=== PATIENT | male | born 1990 | race African-American/Black ===

== ENCOUNTER 2024-04-08 15:26 | Emergency (ER) | payer BC, SELFPAY ==
[2024-04-08 16:23] LABS: Absolute Basophils 0.1 K/uL (0-0.5); Absolute Eosinophils 0.3 K/uL (0-0.5); Absolute Monocytes 0.7 K/uL (0.1-1.3); Absolute Neutrophil 4.7 K/uL (1.8-8.0); Basophils % 0.7 % (0-1.3); Eosinophils % 3.3 % (0-4.4); Hematocrit 50.9 % (39.6-49.0); Hemoglobin 16.8 g/dL (13.6-17.9); MCH 28.3 pg (27.0-35.0); MCV 85.9 fL (80-100); MPV 6.4 fL (7.6-11.3); Monocytes % 9.4 % (3.3-12.3); Neutrophils % 60.6 % (41.7-73.7); Platelets 435 thou/uL (152-406); RBC Red Blood Cell Count 5.93 M/uL (4.33-5.43); Red Cell Distribution Width 13.6 % (12.1-15.2)
[2024-04-08 16:35] LABS: Anion Gap 8.4 mEq/L (5.0-15.0); Potassium 4.4 mEq/L (3.5-5.1)
[2024-04-08 17:05] LABS: White Blood Cell Scan OK (OK)
[2024-04-08 17:06] LABS: Blood Morphology Comment NOT SEEN (NOT SEEN); Platelet Estimate ADEQ
--- NOTE | 2024-04-08 17:22 | RAD REPORT ---
EXAMINATION: CT MAXILLOFACIAL WITH CONTRAST CLINICAL INDICATION: facial swelling, poss dental abscess? TECHNIQUE: Axial images were obtained through the facial bones and orbits with intravenous contrast. Sagittal and coronal reconstructions were created from the data. One or more of the following dose reduction techniques were used: Automated exposure control, adjustment of the mA and/or kV according to patient size, and/or iterative reconstruction. Unless otherwise specified, incidental findings do not require dedicated imaging follow-up. COMPARISON: No prior exam. FINDINGS: SOFT TISSUE: Mildly prominent lymph nodes seen along both jugulodigastric chains. BONES: No evidence of fracture, dislocation, or aggressive osseous lesions. No lesion of the visuali zed skull base or calvarium. ORBITS: The globes are intact. No intraorbital hemorrhage or mass. SINUSES: Small amount of mucous retention cyst or polyp inferior right maxillary antrum. The paranasa l sinuses and mastoids are otherwise clear. No pathologic areas of post-contrast enhancement identified. IMPRESSION: No abscess is visualized.
--- NOTE | 2024-04-08 17:32 | EDPHYS ---
Physician Documentation [facility] Name: Turner Solano Age: 34 yrs Sex: Male : 1990 Arrival Date: 04/08/2024 Time: 15:26 Bed 20 Private MD: ED Physician lE Yang HPI: 04/08 17:15 This 34 yrs old Black Male presents to ER via Ambulatory with complaints of Facial sb4 Swelling. 17:17 patient reports right sided facial swelling and pain for the past few days. he saw his sb4 PCP who told him it was likely his wisdom teeth and/or dental infection and put him on clindamycin. he did see a dentist 3 months ago, had imaging done, and was told his wisdom teeth need to be extracted. he denies any specific pain in the teeth, just swelling in his face. + subjective fever, no chills. no n/v/d. Historical: - Allergies: 15:44 PENICILLINS; iw - Home Meds: 15:44 None [Active]; iw - PMHx: 15:44 None; iw - PSHx: 15:44 None; iw - Immunization history:: Adult Immunizations not up to date. - Infectious Disease History:: Denies. - Social history:: Smoking status: Reported history of juuling and/or vaping. ROS: 17:17 Respiratory: Negative for shortness of breath, cough, wheezing, and pleuritic chest sb4 pain, 17:17 Constitutional: Positive for fever, 17:17 ENT: Positive for right sided facial swelling, 17:17 All other systems are negative, Exam: 17:17 Constitutional: This is a well developed, well nourished patient who is awake, alert, sb4 and in no acute distress. Eyes: Extra-ocular motions intact. Periorbital areas with no swelling, redness, or edema. ENT: Mucous membranes moist. Cardiovascular: Regular rate and rhythm with a normal S1 and S2. Respiratory: No increased work of breathing, no retractions or nasal flaring. Abdomen/GI: Soft, non-tender, no distension. Skin: Warm, dry with normal turgor. Normal color with no rashes, no lesions, and no evidence of cellulitis. 17:17 Head/face: Noted is swelling, that is mild, of the right cheek and right jaw, 17:17 ENT: Dental exam: normal, Vital Signs: 15:42 BP 139 / 82; Pulse 70; Resp 16; Temp 98.2; Pulse Ox 100% on R/A; Weight 72.57 kg; iw Height 5 ft. 8 in. ; Pain 5/10; 16:30 BP 128 / 79; Pulse 68; Resp 16; Pulse Ox 100% ; me1 17:30 BP 132 / 81; Pulse 68; Resp 16; Temp 98.4; Pulse Ox 100% ; me1 15:42 Body Mass Index 24.33 (72.57 kg, 172.72 cm) iw 15:42 Pain Scale: Adult iw MDM: 15:44 Medical Screening Exam initiated sb4 17:29 Data reviewed: vital signs, nurses notes, lab test result(s), radiologic studies, and sb4 as a result, I will discharge patient. Counseling: I had a detailed discussion with the patient and/or guardian regarding the historical points, exam findings, and any diagnostic results supporting the discharge/admit diagnosis, the presence of at least one elevated blood pressure reading (>120/80) during this emergency department visit, lab results, radiology results, to return to the emergency department if symptoms worsen or persist or if there are any questions or concerns that arise at home. 04/08 15:54 Order name: CBC with Diff; Complete Time: 17:07 sb4 04/08 15:54 Order name: BMP; Complete Time: 16:36 sb4 04/08 16:32 Order name: CBC Smear Scan; Complete Time: 17:07 EDMS 04/08 15:54 Order name: Facial Bones W/ Con \T\ MPR CT; Complete Time: 17:23 sb4 04/08 15:54 Order name: IV Start; Complete Time: 16:21 sb4 Administered Medications: No medications were administered Disposition: 19:17 Co-signature as Attending Physician, El Yang MD I reviewed the patient's care rt provided by the Advanced Practice Provider and agree with the diagnosis and treatment plan. Disposition Summary: 04/08/24 17:31 Discharge Ordered Notes: Location: Home sb4 Problem: new sb4 Symptoms: are unchanged sb4 Condition: Stable sb4 Diagnosis - Mucous retention cyst right maxillary sinus sb4 Followup: sb4 - With: Adan Bloom DDS - When: As needed - Reason: Recheck today's complaints, Re-evaluation by your physician Discharge Instructions: - Discharge Summary Sheet sb4 Forms: - Work release form sb4 - Patient Portal Instructions sb4 - Leadership Thank You Letter sb4 Prescriptions: - phenylephrine HCl 5 mg Oral tablet - take 1 tablet ORAL route every 4 to 6 hours as needed for nasal congestion; 20 sb4 tablet; Refills: 0, Product Selection Permitted - Prednisone 20 mg Oral Tablet - take 1 tablet ORAL route once daily for 5 days; 5 tablet; Refills: 0, Product sb4 Selection Permitted Signatures: Dispatcher [employer] EDMS Sofiya Hernandez, RN RN iw Kierra Reynolds PA-C PADemarco sb4 El Yang MD MD rt Corrections: (The following items were deleted from the chart) 15:54 15:54 CBC+H.LAB.BRZ ordered. EDMS EDMS 15:54 15:54 BASIC METABOLIC PANEL+C.LAB.BRZ ordered. EDMS EDMS 15:54 15:54 Facial Bones W/ Con \T\ MPR+CT.RAD.BRZ ordered. EDMS EDMS
--- NOTE | 2024-04-08 17:32 | ER ---
Nurse's Notes [facility] Name: Turner Solano Age: 34 yrs Sex: Male : 1990 Arrival Date: 04/08/2024 Time: 15:26 Bed 20 Private MD: Diagnosis: Mucous retention cyst right maxillary sinus Presentation: 04/08 15:42 Chief complaint: Patient states: right sided facial swelling and jaw pain since last iw week, has been on clindamycin since Tuesday, and now his tongue is black. Coronavirus screen: At this time, the client does not indicate any symptoms associated with coronavirus-19. Ebola Screen: No symptoms or risks identified at this time. Initial Sepsis Screen: Does the patient meet any 2 criteria? No. Patient's initial sepsis screen is negative. Does the patient have a suspected source of infection? No. Patient's initial sepsis screen is negative. Risk Assessment: Do you want to hurt yourself or someone else? Patient reports no desire to harm self or others. 15:42 Method Of Arrival: Ambulatory iw 15:42 Acuity: SANDEEP 4 iw 16:01 Acuity: SANDEEP 3 iw 17:57 Onset of symptoms is unknown. me1 Historical: - Allergies: 15:44 PENICILLINS; iw - Home Meds: 15:44 None [Active]; iw - PMHx: 15:44 None; iw - PSHx: 15:44 None; iw - Immunization history:: Adult Immunizations not up to date. - Infectious Disease History:: Denies. - Social history:: Smoking status: Reported history of juuling and/or vaping. Screenin:50 [facility] ED Fall Risk Assessment (Adult) History of falling in the last 3 months, iw including since admission No falls in past 3 months (0 pts) Confusion or Disorientation No (0 pts) Intoxicated or Sedated No (0 pts) Impaired Gait No (0 pts) Mobility Assist Device Used No (0 pt) Altered Elimination No (0 pt) Score/Fall Risk Level 0 - 2 = Low Risk Maintained a safe environment, Provided non-skid footwear, Hourly rounding (assess needs \T\ fall precautionary measures) done. Abuse screen: Denies threats or abuse. Nutritional screening: No deficits noted. Tuberculosis screening: No symptoms or risk factors identified. Assessment: 15:50 General: Appears in no apparent distress. Behavior is calm, cooperative, appropriate iw for age, Reports right sided facial swelling and jaw pain since last week, has been on clindamycin since Tuesday, and now his tongue is black. Pain: Complains of pain in right jaw Pain does not radiate. Pain currently is 4 out of 10 on a pain scale. Quality of pain is described as aching, Pain began gradually, Is continuous. Neuro: Level of Consciousness is awake, alert, obeys commands, Oriented to person, place, time, situation, Appropriate for age. Cardiovascular: Patient's skin is warm and dry. Respiratory: Airway is patent Trachea midline Respiratory effort is even, unlabored, Respiratory pattern is regular, symmetrical. GI: No signs and/or symptoms were reported involving the gastrointestinal system. : No signs and/or symptoms were reported regarding the genitourinary system. EENT: Reports right sided facial swelling and jaw pain since last week, has been on clindamycin since Tuesday, and now his tongue is black . Derm: Skin is healthy with good turgor, Skin is normal. Musculoskeletal: No signs and/or symptoms reported regarding the musculoskeletal system. Vital Signs: 15:42 BP 139 / 82; Pulse 70; Resp 16; Temp 98.2; Pulse Ox 100% on R/A; Weight 72.57 kg; iw Height 5 ft. 8 in. ; Pain 5/10; 16:30 BP 128 / 79; Pulse 68; Resp 16; Pulse Ox 100% ; me1 17:30 BP 132 / 81; Pulse 68; Resp 16; Temp 98.4; Pulse Ox 100% ; me1 15:42 Body Mass Index 24.33 (72.57 kg, 172.72 cm) iw 15:42 Pain Scale: Adult iw ED Course: 15:31 Patient arrived in ED. im 15:38 Deepa Pete, BIPIN is Primary Nurse. me1 15:38 Kierra Reynolds PA-C is PHCP. sb4 15:38 El Yang MD is Attending Physician. sb4 15:44 Triage completed. iw 15:44 Arm band placed on. iw 15:50 Patient has correct armband on for positive identification. Bed in low position. Call iw light in reach. Side rails up X 1. Provided Education on: Conscious Sedation, POC. Verbalized understanding.. Client placed on continuous cardiac and pulse oximetry monitoring. NIBP monitoring applied. Pulse ox on. NIBP on. 15:50 No provider procedures requiring assistance completed. iw 16:21 Inserted saline lock: 22 gauge in left antecubital area, using aseptic technique. iw 17:14 Facial Bones W/ Con \T\ MPR CT In Process Unspecified. EDMS 17:30 Adan Bloom DDS is Referral Physician. sb4 17:57 IV discontinued, intact, bleeding controlled, No redness/swelling at site. Pressure me1 dressing applied. Administered Medications: No medications were administered Medication: 15:50 VIS not applicable for this client. iw Outcome: 17:31 Discharge ordered by MD. sb4 17:56 Discharged to home ambulatory, me1 17:56 Condition: stable 17:56 Discharge instructions given to patient, family, Instructed on discharge instructions, follow up and referral plans. medication usage, Demonstrated understanding of instructions, follow-up care, medications, Prescriptions given X 2, 17:57 Patient left the ED. me1 Signatures: Dispatcher [employer] Sofiya Ortiz RN RN iw Kierra Reynolds, PA-C PA-C sb4 Estelle Chery Michelle, RN RN me1 Corrections: (The following items were deleted from the chart) 17:13 15:42 Chief complaint: Patient states: right sided facial swelling and jaw pain since iw last week, has been on clindamycin since Tuesday, and now his tongue is black iw
[2024-04-08 18:05] VITALS: BP 132/81; TEMP 98.4; O2SAT 100
== END 2024-04-08 17:57 | disposition home or self-care (01) ==
LOC: ER 15:26
DX: J34.1 Cyst and mucocele of nose and nasal sinus (principal)
CPT/HCPCS: 36415; 70487; 76377; 80048; 85025; 99284; Q9967